=== PATIENT | female | born 1980 | race African-American/Black ===

== ENCOUNTER 2019-05-23 18:58 | Emergency (ER) | payer OTHER, SELFPAY ==
--- OUTSIDE RECORDS SUMMARY | 2019-05-23 19:01 | XMS REPORT ---
:1980 [facility] Address [address] [place] [address] Care Team Providers Name Role Phone Unavailable Unavailable Unavailable Problems This patient has no known problems. Allergies, Adverse Reactions, Alerts This patient has no known allergies or adverse reactions. Medications This patient has no known medications.
--- OUTSIDE RECORDS SUMMARY | 2019-05-23 19:02 | XMS REPORT | Summary of Care ---
:1980 Author Organization [facility] Address [address] [place] [id number] Care Team Providers Name Role Phone Zabrina Dan Primary Care Provider Reason for Visit Reason Comments CONTROL Encounter Details Date Type Department Care Team Description 01/20/2019 Nurse Visit [facility]- Zabrina Dan, [facility] [address] [place], [place] [id number] Encounter for [place] Visit, [facility] Nurse Depo-Provera [address] (Primary [place], [place] Dx) [id number] Allergies No Known Allergiesdocumented as of this encounter (statuses as of 01/20/2019) Medications Hospital, Clinic, or Other Ordered Dose Route Frequency Start Date End Date Status Facility Administered Medication medroxyPROGESTERone 150 mg IM [id number] 07/29/2018 Active (DEPO-PROVERA) injection 150 mgIndications: Menorrhagia with regular cycle, Encounter for prescription for depo-Provera documented as of this encounter (statuses as of 01/20/2019) Active Problems Problem Noted Date Recurrent bacterial infection 05/19/2018 BMI 26.0-26.9,adult 07/28/2017 Screen for STD (sexually transmitted disease) 07/28/2017 Elevated blood pressure reading without diagnosis of hypertension 02/05/2017 History of tubal ligation 06/09/2016 BV (bacterial vaginosis) 06/09/2016 documented as of this encounter (statuses as of 01/20/2019) Resolved Problems Problem Noted Date Resolved Date Chlamydia 07/29/2017 07/29/2017 Overweight 07/28/2017 07/29/2018 Vaginal discharge 07/28/2017 07/29/2018 Well woman exam 06/09/2016 07/28/2017 Other general counseling and advice for contraceptive 06/09/2016 07/29/2018 management delivery delivered 09/10/2006 06/09/2016 Overview: ICD10 Diagnosis Term Sr. Director Product Management Utility Edema or excessive weight gain in , with delivery, 09/10/20062016 with or without mention of antepartum complication documented as of this encounter (statuses as of 01/20/2019) Immunizations Name Administration Dates Next Due Tdap 06/09/2016 documented as of this encounter Social History Tobacco Use Types Packs/Day Years Used Date Never Smoker Smokeless Tobacco: Never Used Alcohol Use Drinks/Week oz/Week Comments Yes 1 Glasses of wine 1.2 occasional 1 Shots of liquor 0 Standard drinks or equivalent Sex Assigned at Date Recorded Not on file Job Start Date Occupation Industry Not on file Not on file Not on file Travel History Travel Start Travel End No recent travel history available. documented as of this encounter Last Filed Vital Signs Vital Sign Reading Time Taken Comments Blood Pressure 124/94 01/20/2019 4:03 PM CDT Pulse 86 01/20/2019 3:39 PM CDT Temperature 36.8 C (98.2 F) 01/20/2019 3:39 PM CDT Respiratory Rate 16 01/20/2019 3:39 PM CDT Oxygen Saturation - - Inhaled Oxygen Concentration - - Weight 70.1 kg (154 lb 9 oz) 01/20/2019 3:39 PM CDT Height 162.6 cm (5' 4") 01/20/2019 3:39 PM CDT Body Mass Index 26.53 01/20/2019 3:39 PM CDT documented in this encounter Patient Instructions Patient InstructionsMariann Wheatley LVN - 01/20/2019 3:30 PM CDT Medroxyprogesterone injection [Contraceptive] Brand Names: Depo-Provera, Depo-subQ Provera 104 What is this medicine? MEDROXYPROGESTERONE (me DROX ee proe MONSTER te mayra) contraceptive injections prevent . They provide effective control for 3 months. Depo-subQ Provera 104 is also used for treating pain related to endometriosis. How should I use this medicine? Depo-Provera Contraceptive injection is given into a muscle. Depo-subQ Provera 104 injection is given under the skin. These injections are given by a health career guidance technician. You must not be before getting an injection. The injection is usually given during the first 5 days after the start of a menstrual period or 6 weeks after delivery of a baby. Talk to your farm supervisor regarding the use of this medicine in children. Special care may be needed. These injections have been used in female children who have started having menstrual periods. What side effects may I notice from receiving this medicine? Side effects that you should report to your doctor or health career guidance technician as soon as possible: allergic reactions like skin rash, itching or hives, swelling of the face, lips, or tongue breast tenderness or discharge breathing problems changes in vision depression feeling faint or lightheaded, falls fever pain in the abdomen, chest, groin, or leg problems with balance, talking, walking unusually weak or tired yellowing of the eyes or skin Side effects that usually do not require medical attention (report to your doctor or health career guidance technician if they continue or are bothersome): acne fluid retention and swelling headache irregular periods, spotting, or absent periods temporary pain, itching, or skin reaction at site where injected weight gain What may interact with this medicine? Do not take this medicine with any of the following medications: bosentan This medicine may also interact with the following medications: aminoglutethimide antibiotics or medicines for infections, especially rifampin, rifabutin, rifapentine, and griseofulvin aprepitant barbiturate medicines such as phenobarbital or primidone bexarotene carbamazepine medicines for seizures like ethotoin, felbamate, oxcarbazepine, phenytoin, topiramate modafinil Reena's wort What if I miss a dose? Try not to miss a dose. You must get an injection once every 3 months to maintain control. If you cannot keep an appointment, call and reschedule it. If you wait longer than 13 weeks between Depo-Provera contraceptive injections or longer than 14 weeks between Depo-subQ Provera 104 injections, you could get . Use another method for control if you miss your appointment. You may also need a test before receiving another injection. Where should I keep my medicine? This does not apply. The injection will be given to you by a health career guidance technician. What should I tell my health care provider before I take this medicine? They need to know if you have any of these conditions: frequently drink alcohol asthma blood vessel disease or a history of a blood clot in the lungs or legs bone disease such as osteoporosis breast cancer diabetes eating disorder (anorexia nervosa or bulimia) high blood pressure HIV infection or AIDS kidney disease liver disease mental depression migraine seizures (convulsions) stroke tobacco smoker vaginal bleeding an unusual or allergic reaction to medroxyprogesterone, other hormones, medicines, foods, dyes, or preservatives or trying to get breast-feeding What should I watch for while using this medicine? This drug does not protect you against HIV infection (AIDS) or other sexually transmitted diseases. Use of this product may cause you to lose calcium from your bones. Loss of calcium may cause weak bones (osteoporosis). Only use this product for more than 2 years if other forms of control are not right for you. The longer you use this product for control the more likely you will be at risk for weak bones. Ask your health career guidance technician how you can keep strong bones. You may have a change in bleeding pattern or irregular periods. Many females stop having periods while taking this drug. If you have received your injections on time, your chance of being is very low. If you think you may be , see your health career guidance technician as soon as possible. Tell your health career guidance technician if you want to get within the next year. The effect of this medicine may last a long time after you get your last injection. NOTE:This sheet is a summary. It may not cover all possible information. If you have questions aboutthis medicine, talk to your doctor, pharmacist, or health care provider. Copyright 2018 Elsevier documented in this encounter Progress Notes Mariann Wheatley LVN - 01/20/2019 3:30 PM CDT38 year old female has been identified by and name. Verbal consent has been obtained by patientto have an injection of Depo Provera, as ordered by the provider. Date of last Depo Provera injection: 10/28/2018 Last WWE: 07/29/2018 Encounter Diagnosis: v25.49 The site was cleaned with an alcohol swab and given intramuscularly (IM) in the right gluteus. A band aid dressing was then applied to the injection site. The patient tolerated the procedure well . Advised patient on Calcium intake 500-1200 mg daily. ED warnings given. Patient to return to clinic in 12 weeks for next Depo. Patient verbalized understanding. Mariann Wheatley LVN 01/20/2019 4:02 PM documented in this encounter Plan of Treatment Date Type Specialty Care Team Description 04/14/2019 Nurse Visit OB Satellites Visit, [facility] Nurse Health Maintenance Due Date Last Done Comments VARICELLA VACCINES (1 of 2 - 1995 13+ 2-dose series) INFLUENZA VACCINE (#1) 2019 PAP SMEAR 06/09/2019 06/09/2016, 06/07/2004 DTaP,Tdap,and Td Vaccines (2 06/09/2026 06/09/2016 - Td) PNEUMOCOCCAL 0-64 YEARS Aged Out No longer eligible based COMBINED SERIES on patient's age to complete this topic documented as of this encounter Results Not on filedocumented in this encounter Visit Diagnoses Diagnosis Encounter for Depo-Provera contraception - Primary Surveillance of other previously prescribed contraceptive method documented in this encounter Administered Medications Medication Order MAR Action Action Date Dose Rate Site medroxyPROGESTERone Given 01/20/2019 4:01 150 mg Right Upper Quad. (DEPO-PROVERA) injection 150 PM CDT Gluteus mg 150 mg, Intramuscular, [id number], First dose on Charo 07/29/18 at 1200, Until Discontinued, Routine Given 10/28/2018 4:17 PM CDT 150 mg Left Dorsogluteal-IM Given 07/29/2018 12:02 PM CDT 150 mg Right Dorsogluteal-IM documented in this encounter Insurance Payer Benefit Plan Subscriber ID Effective Phone Address Type / Group Dates [facility] xxxxxxxxx 2016-Prese [phone] Medicaid WOMEN [address] [place] [address] documented as of this encounter Advance Directives Name Relationship Healthcare Agent Communication Relationship Artemio Jimenez Other Primary healthcare agent
[2019-05-23 19:41] LABS: Urine Blood TRACE (NEG); Urine Glucose NEGATIVE (NEG); Urine Protein NEGATIVE (NEG); Urine Specific Gravity 1.025 (1.005-1.030)
[2019-05-23] MEDS ORDERED: BISACODYL 10 MG RECTAL SUPP ONE (19:42)
[2019-05-23] MEDS ORDERED: BISACODYL E.C. 5 MG TAB PO ONE (19:42)
[2019-05-23 20:32] LABS: Urine Amorphous Sediment 1+ /HPF (NONE SEEN); Urine Bacteria 20-50 /HPF (<20); Urine Culture Reflex Order NOT NEEDED; Urine Mucus 3+ /HPF (NONE SEEN); Urine RBC <5 /HPF (NONE SEEN)
[2019-05-23] MEDS ORDERED: AMOX/K CLAV 875 MG TAB ONE (21:00)
--- NOTE | 2019-05-23 21:09 | ER ---
Nurse's Notes [facility] Name: Ervin Padilla Age: 38 yrs Sex: Female : 1980 Arrival Date: 05/23/2019 Time: 19:02 Bed 26 Private MD: Diagnosis: Constipation, unspecified;Urinary tract infection, site not specified Presentation: 05/23 19:11 Presenting complaint: Patient states: i have lower abdominal pain since Thursday. no mg2 urinary symptoms. Transition of care: patient was not received from another setting of care. Onset of symptoms was May 2019. Risk Assessment: Do you want to hurt yourself or someone else? Patient reports no desire to harm self or others. Initial Sepsis Screen: Does the patient meet any 2 criteria? No. Patient's initial sepsis screen is negative. Does the patient have a suspected source of infection? No. Patient's initial sepsis screen is negative. Care prior to arrival: None. 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 - Social history:: Smoking status: Patient denies any tobacco usage or history of. Patient/guardian denies using alcohol, street drugs, IV drugs. - Ebola Screening: : No symptoms or risks identified at this time. Screenin:45 Abuse screen: Denies threats or abuse. Denies injuries from another. Nutritional mg2 screening: No deficits noted. Tuberculosis screening: No symptoms or risk factors identified. Fall Risk None identified. Assessment: 19:45 General: Appears in no apparent distress. comfortable, Behavior is calm, cooperative. mg2 Pain: Complains of pain in abdomen. Neuro: Level of Consciousness is awake, alert, obeys commands, Oriented to person, place, time, situation. Cardiovascular: Capillary refill < 3 seconds Patient's skin is warm and dry. Respiratory: Airway is patent Respiratory effort is even, unlabored, Respiratory pattern is. GI: Bowel sounds present X 4 quads. Abd is soft and non tender X 4 quads. Reports constipation. : Urine is clear. EENT: No signs and/or symptoms were reported regarding the EENT system. Derm: Skin is intact, is healthy with good turgor, Skin is pink, warm \T\ dry. normal. Musculoskeletal: Circulation, motion, and sensation intact. Capillary refill < 3 seconds. 21:19 Reassessment: No changes from previously documented assessment. mg2 Vital Signs: 19:13 Temp 98.4; Pulse Ox 100% on R/A; Pain 5/10; mg2 19:44 BP 146 / 100; Pulse 77; Resp 18; mg2 21:19 BP 132 / 100; Pulse 74; Resp 18; Temp 98(O); Pulse Ox 100% on R/A; mg2 ED Course: 19:02 Patient arrived in ED. es 19:04 Carey Perrin FNP-C [facility]. snw 19:04 Winter Daley MD is Attending Physician. snw 19:11 Gerry Caceres RN is Primary Nurse. mg2 19:12 Triage completed. mg2 19:13 Arm band placed on. mg2 19:45 Patient has correct armband on for positive identification. mg2 19:45 No provider procedures requiring assistance completed. Patient did not have IV access mg2 during this emergency room visit. Administered Medications: 19:44 Drug: Bisacodyl 10 mg Route: PO; mg2 20:55 Follow up: Response: No adverse reaction mg2 19:45 Drug: Dulcolax Suppository 10 mg Route: DC; mg2 20:55 Follow up: Response: No adverse reaction mg2 21:00 Drug: Augmentin 875 mg Route: PO; mg2 21:05 Follow up: Response: No adverse reaction mg2 Outcome: 21:08 Discharge ordered by . snw 21:19 Discharged to home ambulatory. mg2 21:19 Condition: stable 21:19 Discharge instructions given to patient, Instructed on discharge instructions, follow up and referral plans. medication usage, Demonstrated understanding of instructions, follow-up care, medications, Prescriptions given X 1. 21:20 Patient left the ED. mg2 Signatures: Carey Perrin FNP-C JUNIOR ARCHITECT-Csnw Radha Strong Gerry Caceres, RN RN mg2
--- NOTE | 2019-05-23 21:09 | EDPHYS ---
Physician Documentation [facility] Name: Ervin Padilla Age: 38 yrs Sex: Female : 1980 Arrival Date: 05/23/2019 Time: 19:02 Bed 26 Private MD: ED Physician Winter Daley HPI: 05/23 19:21 This 38 yrs old Black Female presents to ER via Ambulatory with complaints of Abdominal snw Pain. 19:21 The patient presents with abdominal pain in the left lower quadrant. Onset: The snw symptoms/episode began/occurred gradually. The symptoms do not radiate. Associated signs and symptoms: none. The symptoms are described as steady. Severity of pain: At its worst the pain was moderate. The patient has experienced similar episodes in the past. The patient has not recently seen a physician. 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 - Social history:: Smoking status: Patient denies any tobacco usage or history of. Patient/guardian denies using alcohol, street drugs, IV drugs. - Ebola Screening: : No symptoms or risks identified at this time. ROS: 19:18 Constitutional: Negative for fever, chills, and weight loss, Eyes: Negative for injury, snw pain, redness, and discharge, ENT: Negative for injury, pain, and discharge, Neck: Negative for injury, pain, and swelling, Cardiovascular: Negative for chest pain, palpitations, and edema, Respiratory: Negative for shortness of breath, cough, wheezing, and pleuritic chest pain, Back: Negative for injury and pain, : Negative for injury, bleeding, discharge, and swelling, MS/Extremity: Negative for injury and deformity, Skin: Negative for injury, rash, and discoloration, Neuro: Negative for headache, weakness, numbness, tingling, and seizure, Psych: Negative for depression, anxiety, suicide ideation, homicidal ideation, and hallucinations. 19:18 Abdomen/GI: Positive for abdominal pain, of the left lower quadrant, last bm 1.5 weeks ago. Exam: 19:18 Constitutional: This is a well developed, well nourished patient who is awake, alert, snw and in no acute distress. Head/Face: Normocephalic, atraumatic. Eyes: Pupils equal round and reactive to light, extra-ocular motions intact. Lids and lashes normal. Conjunctiva and sclera are non-icteric and not injected. Cornea within normal limits. Periorbital areas with no swelling, redness, or edema. ENT: Nares patent. No nasal discharge, no septal abnormalities noted. Tympanic membranes are normal and external auditory canals are clear. Oropharynx with no redness, swelling, or masses, exudates, or evidence of obstruction, uvula midline. Mucous membranes moist. Neck: Trachea midline, no thyromegaly or masses palpated, and no cervical lymphadenopathy. Supple, full range of motion without nuchal rigidity, or vertebral point tenderness. No Meningismus. Chest/axilla: Normal chest wall appearance and motion. Nontender with no deformity. No lesions are appreciated. Cardiovascular: Regular rate and rhythm with a normal S1 and S2. No gallops, murmurs, or rubs. Normal PMI, no JVD. No pulse deficits. Respiratory: Lungs have equal breath sounds bilaterally, clear to auscultation and percussion. No rales, rhonchi or wheezes noted. No increased work of breathing, no retractions or nasal flaring. Back: No spinal tenderness. No costovertebral tenderness. Full range of motion. Skin: Warm, dry with normal turgor. Normal color with no rashes, no lesions, and no evidence of cellulitis. MS/ Extremity: Pulses equal, no cyanosis. Neurovascular intact. Full, normal range of motion. Neuro: Awake and alert, GCS 15, oriented to person, place, time, and situation. Cranial nerves II-XII grossly intact. Motor strength 5/5 in all extremities. Sensory grossly intact. Cerebellar exam normal. Normal gait. Psych: Awake, alert, with orientation to person, place and time. Behavior, mood, and affect are within normal limits. 19:18 Abdomen/GI: Inspection: abdomen appears normal, Bowel sounds: normal, Palpation: moderate abdominal tenderness, in the left lower quadrant. Vital Signs: 19:13 Temp 98.4; Pulse Ox 100% on R/A; Pain 5/10; mg2 19:44 BP 146 / 100; Pulse 77; Resp 18; mg2 21:19 BP 132 / 100; Pulse 74; Resp 18; Temp 98(O); Pulse Ox 100% on R/A; mg2 MDM: 19:16 Patient medically screened. snw 20:36 Data reviewed: vital signs, nurses notes. Data interpreted: Pulse oximetry: on room air snw is 100 %. Interpretation: normal. Counseling: I had a detailed discussion with the patient and/or guardian regarding: the historical points, exam findings, and any diagnostic results supporting the discharge/admit diagnosis, the presence of at least one elevated blood pressure reading (>120/80) during this emergency department visit, lab results, the need for outpatient follow up, to return to the emergency department if symptoms worsen or persist or if there are any questions or concerns that arise at home. Special discussion: Based on the patient's Hx, exam, and Dx evaluation, there is no indication for emergent surgery or inpatient Tx. It is understood by the patient/guardian that if the Sx's persist or worsen they need to return immediately for re-evaluation. Based on the history and exam findings, there is no indication for further emergent testing or inpatient evaluation. I discussed with the patient/guardian the need to see the primary care provider for further evaluation of the symptoms. 05/23 19:05 Order name: Urine Microscopic Only; Complete Time: 20:36 snw 05/23 19:39 Order name: Urine Dipstick--Ancillary (enter results); Complete Time: 19:46 mw2 05/23 19:39 Order name: Urine --Ancillary (enter results); Complete Time: 19:46 mw2 05/23 19:05 Order name: Urine Test (obtain specimen); Complete Time: 19:38 snw 05/23 19:05 Order name: Urine Dipstick-Ancillary (obtain specimen); Complete Time: 19:39 snw 05/23 20:09 Order name: PO challenge; Complete Time: 20:36 snw Administered Medications: 19:44 Drug: Bisacodyl 10 mg Route: PO; mg2 20:55 Follow up: Response: No adverse reaction mg2 19:45 Drug: Dulcolax Suppository 10 mg Route: VA; mg2 20:55 Follow up: Response: No adverse reaction mg2 21:00 Drug: Augmentin 875 mg Route: PO; mg2 21:05 Follow up: Response: No adverse reaction mg2 Disposition: 05/24 16:01 Co-signature as Attending Physician, Winter Daley MD. ma2 Disposition: 05/23/19 21:08 Discharged to Home. Impression: Constipation, unspecified, Urinary tract infection, site not specified. - Condition is Stable. - Discharge Instructions: Constipation, Adult, Urinary Tract Infection, Adult, Hypertension, [id number], How to Take Your Blood Pressure, [id number], Rehydration, Adult, Form - Blood Pressure Record Sheet. - Prescriptions for Augmentin 875- 125 mg Oral Tablet - take 1 tablet by ORAL route every 12 hours for 10 days; 20 tablet. - Work release form, Medication Reconciliation Form, Thank You Letter, Antibiotic Education, Prescription Opioid Use form. - Follow up: Emergency Department; When: As needed; Reason: Worsening of condition. Follow up: Private Physician; When: 2 - 3 days; Reason: Recheck today's complaints, Continuance of care, Re-evaluation by your physician. Signatures: Dispatcher [employer] EDMS Carey Perrin, CLINICAL AUDIOLOGIST-C CLINICAL AUDIOLOGIST-Csnw Winter Daley MD MD ma2 Gerry Caceres RN RN mg2 Corrections: (The following items were deleted from the chart) 05/23 21:20 21:08 05/23/2019 21:08 Discharged to Home. Impression: Constipation, unspecified; mg2 Urinary tract infection, site not specified. Condition is Stable. Forms are Medication Reconciliation Form, Thank You Letter, Antibiotic Education, Prescription Opioid Use. Follow up: Emergency Department; When: As needed; Reason: Worsening of condition. Follow up: Private Physician; When: 2 - 3 days; Reason: Recheck today's complaints, Continuance of care, Re-evaluation by your physician. snw
[2019-05-23 23:58] VITALS: O2SAT 100
[2019-05-24 00:36] VITALS: BP 132/100; TEMP 98
== END 2019-05-23 21:20 | disposition home or self-care (01) ==
LOC: ER 18:58
DX: K59.00 Constipation, unspecified (principal); N39.0 Urinary tract infection, site not specified
CPT/HCPCS: 81003; 81015; 81025; 99283

== ENCOUNTER 2021-08-04 18:21 | Emergency (ER) | payer SELFPAY ==
[2021-08-04 19:04] LABS: Urine Blood 2+ (Negative); Urine Glucose Negative (Negative); Urine Protein Trace (Negative)
[2021-08-04 19:21] LABS: Barbiturates NEGATIVE (NEGATIVE); Benzodiazepines NEGATIVE (NEGATIVE); Cocaine NEGATIVE (NEGATIVE); METHAMPHETAM NEGATIVE (NEGATIVE); Methadone NEGATIVE (NEGATIVE); Opiates NEGATIVE (NEGATIVE); Phencyclidine NEGATIVE (NEGATIVE); THC Cannibis NEGATIVE (NEGATIVE)
[2021-08-04 19:30] LABS: Absolute Lymphocytes (CBC) 1.6 K/uL (0.7-4.9); Lymphocytes % 15.1 % (15.3-44.8); MPV 8.4 fL (7.6-11.3); RBC Red Blood Cell Count 4.42 M/uL (3.86-4.86)
[2021-08-04] MEDS ORDERED: NA CHLORIDE 0.9% 1,000 ML ONE (19:36)
[2021-08-04 19:41] LABS: Protime INR 1.15
[2021-08-04 19:46] LABS: ALT/SGPT 23 U/L (12-78); AST/SGOT 16 U/L (15-37); Albumin 4.2 g/dL (3.4-5.0); Alkaline Phosphatase 69 U/L (45-117); BUN Blood Urea Nitrogen 9 mg/dL (7-18); Bicarbonate 25 mmol/L (21-32); Bilirubin Direct 0.1 mg/dL (0-0.2); Bilirubin Total 0.5 mg/dL (0.2-1.0); Glucose Level 153 mg/dL (74-106); Potassium 3.7 mmol/L (3.5-5.1); Protein, Total 8.1 g/dL (6.4-8.2); Sodium Level 143 mmol/L (136-145)
--- NOTE | 2021-08-04 20:32 | EDPHYS ---
Physician Documentation [facility] – [place], [place] Name: Ervin Suh Age: 41 yrs Sex: Female : 1980 Arrival Date: 08/04/2021 Time: 18:23 Bed 17 Private MD: ED Physician Wilbert Dunham HPI: 08/04 18:47 This 41 yrs old Black Female presents to ER via Law Enforcement with complaints of pm1 Suicidal Ideation. 18:47 The patient presents to the emergency department with a history of a suicide gesture, pm1 where the patient took pills/medications, Baclofen 8 pills with the intention of killing herself, suicide ideation, and the patient has a plan, to overdose with medications. Onset: The symptoms/episode began/occurred today. Past psychiatric history: Prior diagnosis: no previous psychiatric diagnosis known, Psychiatric medications include: none, Primary psychiatric physician: the patient does not have a primary psychiatric physician, the patient has not had a prior suicide gesture, the patient does not have a previous inpatient psychiatric history. Associated signs and symptoms: Pertinent positives; suicide ideation. Severity of symptoms: in the emergency department the symptoms are unchanged. The patient has not experienced similar symptoms in the past. The patient has not recently seen a physician. 18:47 Patient was exchanging text messages with her boyfriend that she was going to hurt/kill pm1 herself by overdosing on medications. Patient took an old prescription of baclofen x 8 pills about 3 hours prior to arrival in an attempt to hurt/kill herself. 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 - Social history:: Smoking status: Patient denies any tobacco usage or history of. Patient uses alcohol, occasionally. Patient/guardian denies using street drugs. ROS: 18:47 Constitutional: Negative for fever, chills, and weight loss, Cardiovascular: Negative pm1 for chest pain, palpitations, and edema, Respiratory: Negative for shortness of breath, cough, wheezing, and pleuritic chest pain. 18:47 Back: Negative for injury and pain, MS/Extremity: Negative for injury and deformity, Skin: Negative for injury, rash, and discoloration, Neuro: Negative for headache, weakness, numbness, tingling, and seizure. 18:47 Abdomen/GI: Positive for nausea and vomiting, Negative for abdominal pain, diarrhea. 18:47 All other systems are negative. Exam: 18:47 Constitutional: This is a well developed, well nourished patient who is awake, alert, pm1 and in no acute distress. Head/Face: Normocephalic, atraumatic. 18:47 Skin: Warm, dry with normal turgor. Normal color with no rashes, no lesions, and no evidence of cellulitis. MS/ Extremity: Pulses equal, no cyanosis. Neurovascular intact. Full, normal range of motion. 18:47 Eyes: Exam is negative for acute changes, Extraocular movements: no acute changes, Conjunctiva: no acute changes, no injection. 18:47 ENT: Exam is negative for acute changes, Mouth: no acute changes, Lips: normal, moist, Oral mucosa: normal, pink and intact, moist. 18:47 Cardiovascular: Exam negative for acute changes, Rate: normal, Rhythm: regular, Pulses: no pulse deficits are appreciated. 18:47 Respiratory: Exam negative for acute changes, respiratory distress, shortness of breath. 18:47 Back: Exam negative for acute changes, ROM is normal. 18:47 Neuro: Exam negative for acute changes, Orientation: is normal, Mentation: sleepy, Motor: is normal, moves all fours. Vital Signs: 18:32 BP 149 / 107; Pulse 89; Resp 17; Temp 97.9; Pulse Ox 98% ; jl7 19:54 BP 154 / 91; Pulse 87; Resp 16; Temp 98.5; Pulse Ox 100% on R/A; Pain 0/10; toña 23:41 BP 146 / 102; Pulse 89; Resp 18; Temp 98.5; Pulse Ox 100% on R/A; Pain 0/10; toña 08/05 03:50 BP 126 / 85; Pulse 89; Resp 16; Pulse Ox 99% on R/A; Pain 0/10; toña 05:20 BP 128 / 85; Pulse 88; Resp 16; Temp 98.5; Pulse Ox 99% on R/A; Pain 0/10; toña MDM: 04/03 18:37 Patient medically screened. pm1 20:30 Data reviewed: vital signs. Data interpreted: Pulse oximetry: on room air is 100 %. pm1 Interpretation: normal. Counseling: I had a detailed discussion with the patient and/or guardian regarding: the historical points, exam findings, and any diagnostic results supporting the discharge/admit diagnosis, lab results, the need to transfer to another facility, [facility] does not immediately have the required specialist. 20:48 ED course: Parents requested I release the patient to their custody but explained that pm1 she is an adult that had a plan to overdose on medications and she attempted to follow through on it by taking 8 pills of her old prescription of baclofen. Explained to the patient and parents that she has an GIL. Explained that transfer to a psychiatric facility is warranted based on her presentation. Her father believes that the ER is in league with the police officers. 08/04 18:47 Order name: Acetaminophen; Complete Time: 19:56 pm1 08/04 18:47 Order name: Basic Metabolic Panel; Complete Time: 19:56 pm1 08/04 18:47 Order name: CBC with Diff; Complete Time: 19:39 pm1 08/04 18:47 Order name: ETOH Level; Complete Time: 19:56 pm1 08/04 18:47 Order name: Hepatic Function; Complete Time: 19:56 pm1 08/04 18:47 Order name: PT-INR; Complete Time: 19:56 pm1 08/04 18:47 Order name: Ptt, Activated; Complete Time: 19:56 pm1 08/04 18:47 Order name: Salicylate; Complete Time: 19:56 pm1 08/04 18:47 Order name: Urine Drug Screen; Complete Time: 19:24 pm1 08/04 18:47 Order name: EKG; Complete Time: 18:48 pm1 08/04 18:50 Order name: COVID-19 SARS RT PCR (Document "Date of Onset" if Symptomatic); Complete pm1 Time: 20:54 08/04 19:04 Order name: Urine --Ancillary (enter results); Complete Time: 19:56 ds4 08/04 19:04 Order name: Urine Dipstick-Ancillary; Complete Time: 19:11 EDMS 08/04 18:47 Order name: EKG - Nurse/Tech; Complete Time: 19:43 pm1 08/04 18:47 Order name: IV Saline Lock; Complete Time: 19:16 pm1 08/04 18:47 Order name: Labs collected and sent; Complete Time: 19:16 pm1 08/04 18:47 Order name: Suicide Precautions; Complete Time: 19:16 pm1 08/04 18:47 Order name: Suicide Screening ([place]); Complete Time: 19:16 pm1 08/04 18:47 Order name: Urine Dipstick-Ancillary (obtain specimen); Complete Time: 19:04 pm1 08/04 18:47 Order name: Urine Test (obtain specimen); Complete Time: 19:04 pm1 04 18:49 Order name: Misc. Order: Contact poison control; Complete Time: 19:43 pm1 Administered Medications: 19:42 Drug: NS 0.9% 1000 ml Route: IV; Rate: 1000 ml; Site: left antecubital; toña 21:29 Follow up: IV Status: Completed infusion toña Disposition: 08/05 07:05 Co-signature as Attending Physician, Wilbert Dunham MD. rn Disposition Summary: 08/04/21 20:31 Transfer Ordered Transfer Location: Psych Facility pm1 Reason: Specialty pm1 Condition: Stable pm1 Problem: new pm1 Symptoms: are unchanged pm1 Accepting Physician: Dr. Abrams(08/05/21 06:46) toña Diagnosis - Suicidal ideations pm1 Forms: - Medication Reconciliation Form pm1 - SBAR form pm1 Signatures: Dispatcher [employer] Wilbert Villasenor MD MD rn Marinas, Patrick, PRESSURE TESTER OPERATOR PRESSURE TESTER OPERATOR pm1 Brian Colón RN RN 7 Kel Cesar MD MD mh7 O'Farrell, Brenda, RN RN toña Corrections: (The following items were deleted from the chart) 05:20 08/04 20:31 MD [email or web address] 7 08/05 06:46 05:20 Dr. Abrams [facility]
--- NOTE | 2021-08-04 20:32 | ER ---
Nurse's Notes [facility] Name: Ervin Suh Age: 41 yrs Sex: Female : 1980 Arrival Date: 08/04/2021 Time: 18:23 Bed 17 Private MD: Diagnosis: Suicidal ideations Presentation: 08/04 18:32 Chief complaint: GIL paper from [facility] reports "Reviewed text messages exchanged jl7 between boyfriend stating she would consume prescription medication in large amounts. Vikash stated she wanted to via tet messages." Pt was dropped off at ED and left in waiting room. Pt drowsy in triage and reports taking "a few" muscle relaxers, denies SI and denies HI. Coronavirus screen: At this time, the client does not indicate any symptoms associated with coronavirus-19. Ebola Screen: No symptoms or risks identified at this time. Initial Sepsis Screen: Does the patient meet any 2 criteria? No. Patient's initial sepsis screen is negative. Does the patient have a suspected source of infection? No. Patient's initial sepsis screen is negative. Risk Assessment: Do you want to hurt yourself or someone else? Patient reports no desire to harm self or others. Onset of symptoms is unknown. 18:32 Method Of Arrival: Law Enforcement: [place] [id number] 18:32 Acuity: SUSHANT 2 jl7 Triage Assessment: 18:37 General: Appears in no apparent distress. uncomfortable, Behavior is cooperative, jl7 drowsy, quiet. Pain: Denies pain. 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 - Social history:: Smoking status: Patient denies any tobacco usage or history of. Patient uses alcohol, occasionally. Patient/guardian denies using street drugs. Screenin:06 Abuse screen: Denies threats or abuse. Denies injuries from another. Pt denies SI/HI. toña She is being held on an GIL from [place] . Nutritional screening: No deficits noted. Tuberculosis screening: No symptoms or risk factors identified. Fall Risk None identified. Assessment: 19:43 Reassessment: Patient appears in no apparent distress at this time. Pt denies SI/HI, toña states she "was mad at the time". I called Poison Control and spoke with Mark. The pt stated that she took "Baclofen...it was my old prescription". Per Mark, just provide "supportive care" and watch for agitation or sz. Mark states he The pt's room is directly in front of the nurse's station and both of her parents are at bedside, visiting with the pt, for the last 30 minutes. I will encourage one of them to possibly stay at bedside, as the pt is very responsive to them and they are supportive and encouraging. The pt is rightfully, emotionally labile, while visiting at times, but she is responding and affectionate to both of them. 20:10 Reassessment: The pt asked for a sandwich and was given one. She remains AAOx3, albeit, toña a "little tired". 22:10 Reassessment: The pt is visiting with her sister, who is at bedside, at this time. She toña is pleasant and continues to deny SI/HI. 23:13 Reassessment: The pt has family at bedside. They are "rotating through". All are toña supportive and pleasant with the pt. 23:44 Reassessment: Poison control called to ask how the pt was doing and the values of toña Acetaminophen and Salicylate, which were both normal. The pt's family remain at bedside. The pt is laughing and visiting with her family. 08/05 00:39 Reassessment: The pt's parents, Kusum and Jory Ramirez' phone numbers are [phone] toña or [phone], and they want to be informed "before any decision is made to transfer her". They remained supportive and encouraging to the pt during their entire time. The pt reports,"We're a close family.". 02:03 Reassessment: The pt's family has left, so the curtain was opened, so she is visible toña from the nurse's station. She is concerned that she won't be able to go to work in a "couple of days". She continues to deny SI/HI. She is resting comfortably. 05:23 Reassessment: Report given to [facility] [place] [facility] toña 05:28 Reassessment: The pt has asked me to call her parents and update them, so I did and she toña is now calling the pt. 06:04 Reassessment: The pt is reluctant, but in agreement with going to [facility]. toña 06:43 Reassessment: Report given to EMS and the pt was transferred via stretcher. toña Psych: 08/04 20:13 [place] Suicide Severity Screening: In the past month, have you wished you were toña or wished you could go to sleep and not wake up? Patient responds "No." "In the past month, have you actually had any thoughts of killing yourself?" Patient responds "no." "In your lifetime, have you ever done anything, started to do anything, or prepared to do anything to end your life?" Patient responds "no.". Subjective: Patient's mood is sad, Delusions are denied, Hallucinations are denied Having thoughts of Denies SI/HI. Objective: Patient is cooperative, Speech is normal, Affect is appropriate, Patient has mutilated themselves by NA. Interventions: Removed personal items and placed in bag. Urine collected and sent for urine drug test. Patient reassessed during use of restraints. Patient is physically safe. Safety Checks: Personal items have been removed. Door is open. Visitors are present. Pt denies substance abuse. Commitment: GIL from [facility]. Vital Signs: 18:32 BP 149 / 107; Pulse 89; Resp 17; Temp 97.9; Pulse Ox 98% ; jl7 19:54 BP 154 / 91; Pulse 87; Resp 16; Temp 98.5; Pulse Ox 100% on R/A; Pain 0/10; toña 23:41 BP 146 / 102; Pulse 89; Resp 18; Temp 98.5; Pulse Ox 100% on R/A; Pain 0/10; toña 04/04 03:50 BP 126 / 85; Pulse 89; Resp 16; Pulse Ox 99% on R/A; Pain 0/10; toña 05:20 BP 128 / 85; Pulse 88; Resp 16; Temp 98.5; Pulse Ox 99% on R/A; Pain 0/10; toña ED Course: 08/04 18:23 Patient arrived in ED. as 18:36 Vladislav Hall NP is PHCP. pm1 18:36 Wilbert Dunham MD is Attending Physician. pm1 18:37 Triage completed. jl7 18:37 Arm band placed on right wrist. jl7 19:11 Inserted saline lock: 20 gauge in left antecubital area, using aseptic technique. jd3 ,using aseptic technique. placed by [facility]. 19:16 Santosh Brown, RN is Primary Nurse. jd3 19:16 Urine --Ancillary (enter results) Sent. jd3 19:16 Acetaminophen Sent. jd3 19:17 Basic Metabolic Panel Sent. jd3 19:17 CBC with Diff Sent. jd3 19:17 ETOH Level Sent. jd3 19:17 Hepatic Function Sent. jd3 19:17 PT-INR Sent. jd3 19:17 Ptt, Activated Sent. jd3 19:17 Salicylate Sent. jd3 19:17 Urine Drug Screen Sent. jd3 19:30 Acetaminophen Sent. toña 19:30 Basic Metabolic Panel Sent. toña 19:30 CBC with Diff Sent. toña 19:30 ETOH Level Sent. toña 19:30 Hepatic Function Sent. toña 19:30 Salicylate Sent. toña 19:30 Ptt, Activated Sent. toña 19:30 PT-INR Sent. tñoa 19:42 COVID-19 SARS RT PCR (Document "Date of Onset" if Symptomatic) Sent. toña 20:11 COVID-19 SARS RT PCR (Document "Date of Onset" if Symptomatic) Sent. toña 20:13 No provider procedures requiring assistance completed. toña 20:15 Patient has correct armband on for positive identification. Adult w/ patient. Warm toña blanket given. Administered Medications: 19:42 Drug: NS 0.9% 1000 ml Route: IV; Rate: 1000 ml; Site: left antecubital; toña 21:29 Follow up: IV Status: Completed infusion toña Outcome: 20:14 Condition: stable toña 20:31 ER care complete, transfer ordered by . pm1 08/05 06:46 Patient left the ED. toña Signatures: Terri Moreno Patrick, SEO ASSOCIATE SEO ASSOCIATE pm1 Brian Colón RN RN jl7 Santosh Brown, RN RN jd3 Sheryl Mena RN RN toña
[2021-08-05 07:13] VITALS: TEMP 98.5
[2021-08-05 07:17] VITALS: O2SAT 99
[2021-08-05 07:18] VITALS: BP 128/85
--- NOTE | 2021-08-05 11:13 | EKG ---
Test Date: 2021-08-04 Test Time: 19:35:40 Freight Loader: SARAN MEASUREMENT RESULTS: Intervals: Rate: 72 VT: 128 QRSD: 84 QT: 406 QTc: 444 [place]: P: 63 VT: 128 QRS: 55 T: 30 INTERPRETIVE STATEMENTS: Normal sinus rhythm with sinus arrhythmia Normal ECG No previous ECG available for comparison Electronically Signed On 08-05-21 11:12:10 CDT by Dean Johnson
== END 2021-08-05 06:46 ==
LOC: ER 18:21
DX: R45.851 Suicidal ideations (principal); Z20.822 Contact with and (suspected) exposure to COVID-19; I10 Essential (primary) hypertension
CPT/HCPCS: 36415; 80048; 80076; 80307; 80320; 80329; 81003; 81025; 85025; 85610; 85730; 93005; 96360; 96361; 99284; J7030; U0003